=== PATIENT | male | born 1975 ===

== ENCOUNTER 2016-09-11 09:03 | Emergency (ER) | payer SELFPAY ==
[~2016-09-11 09:03] MED LIST: AMARYL1 M1 PO; ANUSOL-HC SUPPO25 MG RC; GLIMEPIRIDE1 MG PO; LISINOPRIL2.5 MG PO; LOVASTATIN20 M1 PO; ZESTRIL2.5 M1 PO
[2016-09-11] MEDS ORDERED: LOVASTATIN10 M1 PO (09:13)
[2016-09-11] MEDS ORDERED: DOXYCYCLINE HY100 M5 PO (10:04)
[2016-09-11] MEDS ORDERED: MICONAZOLE NITR30 GM TP (10:04)
[2016-09-11 10:11] VITALS: BP 138/78
== END 2016-09-11 10:10 | disposition home or self-care (01) ==
LOC: ED 09:03
DX: L29.0 Pruritus ani (principal); I10 Essential (primary) hypertension; E11.9 Type 2 diabetes mellitus without complications; Z79.84 Long term (current) use of oral hypoglycemic drugs

== ENCOUNTER 2016-09-15 16:02 | Emergency (ER) | payer SELFPAY ==
[~2016-09-15 16:02] MED LIST changes: +DOXYCYCLINE HY100 M5 PO; +LOVASTATIN10 M1 PO; +MICONAZOLE NITR30 GM TP
[2016-09-15] MEDS ORDERED: PRINIVIL5 M1 (16:10)
[2016-09-15 18:02] VITALS: BP 150/82
== END 2016-09-15 18:00 | disposition home or self-care (01) ==
LOC: ED 16:02
DX: M94.0 Chondrocostal junction syndrome [Tietze] (principal); F17.210 Nicotine dependence, cigarettes, uncomplicated; M25.562 Pain in left knee; M25.561 Pain in right knee
CPT/HCPCS: J1885